=== PATIENT | female | born 1995 | race Caucasian/White ===

== ENCOUNTER 2018-08-14 16:54 | Emergency (ER) | payer SELFPAY ==
--- NOTE | 2018-08-14 17:36 | ER Document Report ---
ED Medical Screen (RME) - General Chief Complaint: Head Injury Stated Complaint: HEAD PAIN Time Seen by Provider: 08/14/18 17:26 Notes: 23 years old female female with a history of chronic seizure disorder and multiple syncopal episode could not afford seizure medication, started taking CBD oil since then seizure episodes have decreased tremendously. This morning she did not have enough CBD oil took a small dose could not take the noon no evening dose, had a syncopal episode prior to coming to the ED. Obesity no obvious trauma TRAVEL OUTSIDE OF THE [place] IN LAST 30 DAYS: No - Related Data Allergies/Adverse Reactions: hydrocodone Allergy (Verified 08/14/18 16:55) Past Medical History Neurological Medical History: Reports: Hx Seizures Past Surgical History: Reports: Hx Cholecystectomy, Hx Tonsillectomy - adnoids. - Immunizations Immunizations up to date: Yes Hx Diphtheria, Pertussis, Tetanus Vaccination: Yes Physical Exam - Vital signs Vitals: Temp Pulse Resp BP Pulse Ox 98.2 F 83 17 143/87 H 97 08/14/18 16:59 08/14/18 16:59 08/14/18 16:59 08/14/18 16:59 08/14/18 16:59 Course - Vital Signs Vital signs: Temp Pulse Resp BP Pulse Ox 98.2 F 83 17 143/87 H 97 08/14/18 16:59 08/14/18 16:59 08/14/18 16:59 08/14/18 16:59 08/14/18 16:59 Doctor's Discharge - Discharge Referrals: DON DEAN MD [Primary Care Provider] - Follow up as needed
[2018-08-14 18:09] LABS: ABSOLUTE EOSINOPHILS # (AUTO) 0.1 10^3/uL (0.0-0.6); ABSOLUTE LYMPHOCYTES (AUTO) 1.8 10^3/uL (0.5-4.7); ABSOLUTE MONOCYTES (AUTO) 0.7 10^3/uL (0.1-1.4); ABSOLUTE NEUT (AUTO) 8.2 10^3/uL (1.7-8.2); BASOPHILS % (AUTO) 0.4 % (0-2); EOSINOPHILS % (AUTO) 0.7 % (0-6); HEMATOCRIT 39.5 % (36.0-47.0); HEMOGLOBIN 13.5 g/dL (12.0-15.5); LYMPHOCYTES % (AUTO) 16.8 % (13-45); MEAN CORPUSCULAR HEMOGLOBIN 30.3 pg (27.0-33.4); MEAN CORPUSCULAR HGB CONC 34.2 g/dL (32.0-36.0); MEAN CORPUSCULAR VOLUME 89 fl (80-97); MONOCYTES % (AUTO) 6.8 % (3-13); PLATELET COUNT 264 10^3/uL (150-450); RED BLOOD COUNT 4.47 10^6/uL (3.72-5.28); RED CELL DISTRIBUTION WIDTH 13.5 % (11.5-14.0); SEGMENTED NEUTROPHILS % (AUTO) 75.3 % (42-78); TOTAL CELLS COUNTED % (AUTO) 100 %; WHITE BLOOD COUNT 10.9 10^3/uL (4.0-10.5)
[2018-08-14 18:16] LABS: APPEARANCE,URINE SLIGHTLY-CLOUDY; BILIRUBIN,URINE NEGATIVE (NEGATIVE); COLOR,URINE YELLOW; GLUCOSE, URINE NEGATIVE (NEGATIVE); KETONES,URINE NEGATIVE (NEGATIVE); LEUKOCYTE ESTERASE,URINE TRACE (NEGATIVE); NITRITE,URINE NEGATIVE (NEGATIVE); PROTEIN,URINE NEGATIVE (NEGATIVE); URINE SPECIFIC GRAVITY 1.019; UROBILINOGEN,URINE NEGATIVE mg/dL (<2.0)
[2018-08-14 18:30] LABS: ALANINE AMINOTRANSFERASE 41 U/L (9-52); ALBUMIN 4.3 g/dL (3.5-5.0); ALKALINE PHOSPHATASE 56 U/L (38-126); ANION GAP 10 (5-19); ASPARTATE AMINO TRANSFERASE 28 U/L (14-36); BILIRUBIN,DIRECT 0.3 mg/dL (0.0-0.4); BILIRUBIN,TOTAL 0.5 mg/dL (0.2-1.3); BLOOD UREA NITROGEN 14 mg/dL (7-20); CALCIUM 9.6 mg/dL (8.4-10.2); CARBON DIOXIDE 27 mmol/L (22-30); CHLORIDE 104 mmol/L (98-107); GLUCOSE 101 mg/dL (75-110); POTASSIUM 4.7 mmol/L (3.6-5.0); SODIUM 140.7 mmol/L (137-145); TOTAL PROTEIN 7.6 g/dL (6.3-8.2)
[2018-08-14] MEDS ORDERED: DIPHENHYDRAMINE HCL 50 MG/ML VIAL IV ONE (19:46)
[2018-08-14] MEDS ORDERED: PROCHLORPERAZINE EDISYLATE INJ 10 MG/2 ML VIAL IV ONE (19:46)
--- NOTE | 2018-08-14 19:48 | ER Document Report ---
ED General - General Chief Complaint: Head Injury Stated Complaint: HEAD PAIN Time Seen by Provider: 08/14/18 17:26 TRAVEL OUTSIDE OF THE [place] IN LAST 30 DAYS: No - HPI Notes: Patient is a 23-year-old female with a history of seizure disorder as well as episodes of syncope chronically who presents to the ED complaining of having another syncopal episode about 4 hours ago. Patient states that she is feeling fine beforehand and does not recall any other precipitating events or symptoms. Patient was on the ground for an unknown amount of time but believes it was a short amount of time as her significant other was somewhat nearby and saw her on the ground. She was responsive and acting and behaving normally thereafter. Patient states that this last happened about 2 weeks ago. Patient states that she has been using CBD oil for her medicine of choice which she believes has been helping with her seizures. Patient states that she also has a migraine history and states that she does have a headache status post a fall. Patient states that her left cheek was swollen from hitting the ground. Patient states that she came because of the headache and the pain after the fall rather than the actual syncope as this is not uncommon for her. No other concerns or complaints. She is eating and drinking without any difficulties. Denies any fever, neck pain, changes in vision/speech/mentation/hearing, URI, sore throat, chest pain, palpitations, syncope, cough, shortness of breath, wheeze, dyspnea, abdominal pain, nausea/vomiting/diarrhea, urinary retention, dysuria, hematuria, loss of control of bowel or bladder, numbness/tingling, saddle anesthesia, muscle paralysis/weakness, or rash. - Related Data Allergies/Adverse Reactions: hydrocodone Allergy (Verified 08/14/18 16:55) Past Medical History - Social History Smoking Status: Never Smoker Chew tobacco use (# tins/day): No Frequency of alcohol use: None Drug Abuse: None Family History: Reviewed & Not Pertinent Patient has suicidal ideation: No Patient has homicidal ideation: No Neurological Medical History: Reports: Hx Seizures Renal/ Medical History: Denies: Hx Peritoneal Dialysis Past Surgical History: Reports: Hx Cholecystectomy, Hx Tonsillectomy - adnoids. - Immunizations Immunizations up to date: Yes Hx Diphtheria, Pertussis, Tetanus Vaccination: Yes Review of Systems - Review of Systems -: Yes All other systems reviewed and negative Physical Exam - Vital signs Vitals: Temp Pulse Resp BP Pulse Ox 98.2 F 83 17 143/87 H 97 08/14/18 16:59 08/14/18 16:59 08/14/18 16:59 08/14/18 16:59 08/14/18 16:59 - Notes Notes: PHYSICAL EXAMINATION: GENERAL: Well-appearing, well-nourished and in no acute distress. A&Ox4. Answers questions appropriately. HEAD: Atraumatic, normocephalic. Non-tender. No couch sign EYES: Pupils equal round and reactive to light, extraocular movements intact, sclera anicteric, conjunctiva are normal. No raccoon eyes/entrapment. ENT: EAC clear b/l. TM's intact b/l without erythema, fluid, or perforation. Nares patent and without discharge. oropharynx clear without exudates. No tonsilar hypertrophy or erythema. Moist mucous membranes. No sinus tenderness. No hemotympanum/CSF discharge. No tongue bite. NECK: Normal range of motion, supple without lymphadenopathy. No rigidity. No midline tenderness. Spurling negative. NEXUS negative. LUNGS: Breath sounds clear to auscultation bilaterally and equal. No wheezes rales or rhonchi. HEART: Regular rate and rhythm without murmurs, rubs, gallops. ABDOMEN: Soft, nontender, nondistended abdomen. No guarding, no rebound. No masses appreciated. Normal bowel sounds present. No CVA tenderness bilaterally. Musculoskeletal: Ext's b/l: FROM to passive/active. Strength 5+/5. No deficits noted. No bony tenderness of extremities. Back: FROM to passive/active. Strength 5+/5. No vertebral point tenderness, stepoffs, or deformities. No other bony tenderness or ecchymosis. Extremities: No cyanosis, clubbing, or edema b/l. Peripheral pulses 2+. Capillary refill less than 2 seconds. NEUROLOGICAL: NIH 0. GCS 15. Cranial nerves grossly intact. Normal speech, normal gait. Normal sensory, motor exams. Reflexes 2+ b/l. SHIKHA's negative. Pronator drift negative. Heel/mars, finger/nose wnl. PSYCH: Normal mood, normal affect. SKIN: Warm, Dry, normal turgor, no rashes or lesions noted. Course - Re-evaluation Re-evalutation: 08/14/18 21:19 Patient is an afebrile, well-hydrated, 23-year-old female who presents to the ED with headache and head injury status post reported syncopal episode that was unwitnessed. Vitals are acceptable without any significant tachycardia, tachypnea, or hypoxia. PE is otherwise unremarkable for any focal neurological deficits. CT scan of the head and face were unremarkable for any acute pathology. Nexus criteria otherwise negative. CBC, CMP, urinalysis, hCG were unremarkable for any acute pathology. Orthostatics were unremarkable. EKG was acceptable. Patient was given Compazine and Benadryl which resolved her headache. Patient states that she is feeling much better and is ready to go home. She is currently asymptomatic. Patient has a repeat reported history of syncopal episodes like this episode somewhat frequently. Patient is ambulatory without any difficulty. No further labs or imaging warranted at this time. Low suspicion for any acute glaucoma, temporal arteritis, meningitis, intracranial hemorrhage, ischemic stroke, significant cardiac arrhythmia, or fracture at this time. Pt has not had any CP, GARZA, or SOB. Patient is aware that this condition can change from initial presentation and that she needs to monitor symptoms closely for any acute changes. Conservative measures for symptoms. Recheck with your PCM/neurology this week. Return to the ED with any worsening/concerning symptoms otherwise as reviewed discharge. Patient is in agreement. - Vital Signs Vital signs: Temp Pulse Resp BP Pulse Ox 98.2 F 78 17 116/68 97 08/14/18 16:59 08/14/18 21:15 08/14/18 16:59 08/14/18 21:15 08/14/18 16:59 - Laboratory Result Diagrams: 08/14/18 17:56 08/14/18 17:56 Laboratory results interpreted by me: 08/14/18 08/14/18 17:56 17:56 WBC 10.9 H Ur Leukocyte Esterase TRACE H Discharge - Discharge Clinical Impression: Headache Qualifiers: Headache type: unspecified Headache chronicity pattern: acute headache Intractability: not intractable Qualified Code(s): R51 - Headache Episode of syncope Qualifiers: Syncope type: unspecified Qualified Code(s): R55 - Syncope and collapse Contusion of face Qualifiers: Encounter type: initial encounter Qualified Code(s): S00.83XA - Contusion of other part of head, initial encounter Condition: Stable Disposition: HOME, SELF-CARE Instructions: Syncopal Episode ([facility]), Head Injury Precautions ([facility]), Headache ( [facility]) Additional Instructions: Rest, Ice Tylenol/ibuprofen as needed Light stretches daily Strength exercises as able Moist heat and massage may help F/u with your PCP/Neurologist in 2-3 days for a recheck Return to the ED with any worsening symptoms and/or development of fever, headache, changes in behavior/mentation/vision/speech, chest pain, palpitations , syncope, shortness of breath, trouble breathing, abdominal pain, n/v/d, blood in stool/urine, loss of control of bowel/bladder, urinary retention, muscle weakness/paralysis, saddle anesthesia, numbness/tingling, or other worsening symptoms that are concerning to you. Referrals: DON DEAN MD [[facility]] - Follow up as needed DARLENE MANSFIELD MD [[facility]] - Follow up as needed
--- NOTE | 2018-08-14 21:08 | RADIOLOGY REPORT (SQ) ---
EXAM DESCRIPTION: CT FACIAL AREA WITHOUT COMPLETED DATE/TIME: 08/14/2018 8:50 pm REASON FOR STUDY: syncopal episode, left face injury COMPARISON: None. TECHNIQUE: Noncontrasted images through the facial bones and orbits windowed for bone and soft tissu e. Additional coronal and sagittal reconstructed images reviewed. All images stored on PACS. All CT scanners at this facility use dose modulation, iterative reconstruction, and/or weight based d osing when appropriate to reduce radiation dose to as low as reasonably achievable (ALARA). [facility]: Dose Right [facility]: CareDose [facility]: Dose Right [facility]: Teradose 4D [facility]: [employer] RADIATION DOSE: CT Rad equipment meets quality standard of care and radiation dose reduction techniq ues were employed. CTDIvol: 30.4 mGy. DLP: 498 mGy-cm. mGy. LIMITATIONS: None. FINDINGS: FACIAL BONES: No fracture or bone lesion. ORBITS: Intact. No fracture. Symmetric intact globes and retroorbital soft tissues. PARANASAL SINUSES: Clear. No significant mucosal thickening, mass or fluid. No nasal polyps. Maxill magno sinus outlets are patent. SOFT TISSUES: No mass or edema. INFERIOR BRAIN: Limited view. No acute findings. OTHER: No other significant finding. IMPRESSION: NO ACUTE FINDINGS. TECHNICAL DOCUMENTATION: JOB ID: [id number] Quality ID # [id number]: Final reports with documentation of one or more dose reduction techniques (e.g., Au tomated exposure control, adjustment of the mA and/or kV according to patient size, use of iterative reconstruction technique) 2010 [employer]- All Rights Reserved Reading location - IP/workstation name: [email or web address]
--- NOTE | 2018-08-14 21:09 | RADIOLOGY REPORT (SQ) ---
EXAM DESCRIPTION: CT HEAD WITHOUT COMPLETED DATE/TIME: 08/14/2018 8:50 pm REASON FOR STUDY: syncopal episode, head injury COMPARISON: 06/04/2013 TECHNIQUE: Axial images acquired through the brain without intravenous contrast. Images reviewed wi th bone, brain and subdural windows. Additional sagittal and coronal reconstructions were generated. Images stored on PACS. All CT scanners at this facility use dose modulation, iterative reconstruction, and/or weight based d osing when appropriate to reduce radiation dose to as low as reasonably achievable (ALARA). [facility]: Dose Right [facility]: CareDose [facility]: Dose Right [facility]: Teradose 4D [facility]: [employer] RADIATION DOSE: CT Rad equipment meets quality standard of care and radiation dose reduction techniq ues were employed. CTDIvol: 53.2 mGy. DLP: 937 mGy-cm. mGy. LIMITATIONS: None. FINDINGS: VENTRICLES: Normal size and contour. CEREBRUM: No masses. No hemorrhage. No midline shift. No evidence for acute infarction. Normal gra y/white matter differentiation. No areas of low density in the white matter. CEREBELLUM: No masses. No hemorrhage. No alteration of density. No evidence for acute infarction. EXTRAAXIAL SPACES: No fluid collections. No masses. ORBITS AND GLOBE: No intra- or extraconal masses. Normal contour of globe without masses. CALVARIUM: No fracture. PARANASAL SINUSES: No fluid or mucosal thickening. SOFT TISSUES: No mass or hematoma. OTHER: No other significant finding. IMPRESSION: NORMAL BRAIN CT WITHOUT CONTRAST. EVIDENCE OF ACUTE STROKE: NO. COMMENT: Quality ID # [id number]: Final reports with documentation of one or more dose reduction techniques (e.g., Automated exposure control, adjustment of the mA and/or kV according to patient size, use of iterative reconstruction technique) TECHNICAL DOCUMENTATION: JOB ID: [id number] [employer]- All Rights Reserved Reading location - IP/workstation name: [email or web address]
[2018-08-14 21:39] VITALS: BP 102/54
--- NOTE | 2018-08-15 08:59 | EKG REPORT ---
SEVERITY:- BORDERLINE ECG - SINUS RHYTHM PROBABLE LEFT ATRIAL ABNORMALITY INFERIOR Q WAVES, PROBABLY NORMAL VARIATION : Confirmed by: Tangela Alan 15-Aug-2018 08:58:06
== END 2018-08-14 21:40 | disposition home or self-care (01) ==
LOC: ER 16:54
DX: S00.83XA Contusion of other part of head, initial encounter (principal); R51 Headache; W19.XXXA Unspecified fall, initial encounter; Y93.89 Activity, other specified; R55 Syncope and collapse; Z88.5 Allergy status to narcotic agent
CPT/HCPCS: 93005; 99284; 96374; 96375; 36415; 83735; 85025; 81025; 80053; 81001; 70450; 70486; 93010; J1200; J0780

== ENCOUNTER 2018-10-29 17:28 | Emergency (ER) | payer SELFPAY ==
[2018-10-29] MEDS ORDERED: LIDOCAINE 2% VISCOUS SOLN 20 ML UDCUP PO ONE (17:38)
[2018-10-29 17:41] VITALS: BP 127/88
--- NOTE | 2018-10-29 17:43 | ER Document Report ---
HPI - HPI Time Seen by Provider: 10/29/18 17:37 Pain Level: 5 Notes: Patient is a 23-year-old female who presents to the ED complaining of Rt upper/lower dental pain to the molars x2 weeks. She has not noticed any obvious abscess or purulent discharge. Patient states that she is still able to eat and drink, but does have a decreased p.o. intake due to the pain. She has tried some [id number] meds with minimal relief. No other concerns or complaints. Patient states that she cannot afford a dentist at this time. Denies any headache, fever, head injury, neck pain, hoarseness, drooling, URI, sore throat, chest pain, palpitations, syncope, cough, shortness of breath, wheeze, dyspnea, abdominal pain, nausea/vomiting/diarrhea, urinary retention, dysuria, hematuria, or rash. - ROS Systems Reviewed and Negative: Yes All other systems reviewed and negative - REPRODUCTIVE Reproductive: DENIES: : Past Medical History - Social History Smoking Status: Unknown if Ever Smoked Family History: Reviewed & Not Pertinent Neurological Medical History: Reports: Hx Seizures Renal/ Medical History: Denies: Hx Peritoneal Dialysis Past Surgical History: Reports: Hx Cholecystectomy, Hx Tonsillectomy - adnoids. - Immunizations Immunizations up to date: Yes Hx Diphtheria, Pertussis, Tetanus Vaccination: Yes Vertical Provider Document - CONSTITUTIONAL Agree With Documented VS: Yes Notes: PHYSICAL EXAMINATION: GENERAL: Well-appearing, well-nourished and in no acute distress. HEAD: Atraumatic, normocephalic. EYES: Pupils equal round and reactive to light, extraocular movements intact, sclera anicteric, conjunctiva are normal. ENT: EAC clear b/l. TM's intact b/l without erythema, fluid, or perforation. Nares patent and without discharge. oropharynx clear without exudates. No tonsilar hypertrophy or erythema. Moist mucous membranes. No sinus tenderness. Uvula midline. No palatine shift. No tongue protrusion. No respiratory compromise. Mouth: Poor dentition. + mild decay and mild gingivitis. No obvious abscess or discharge noted. No facial swelling. + tenderness to tooth #1-3,30-32. NECK: Normal range of motion, supple without lymphadenopathy. No rigidity/meningismus. LUNGS: Breath sounds clear to auscultation bilaterally and equal. No wheezes rales or rhonchi. HEART: Regular rate and rhythm without murmurs, rubs, gallops. NEUROLOGICAL: Cranial nerves grossly intact. Normal speech, normal gait. Normal sensory, motor exams PSYCH: Normal mood, normal affect. SKIN: Warm, Dry, normal turgor, no rashes or lesions noted. - INFECTION CONTROL TRAVEL OUTSIDE OF THE [place] IN LAST 30 DAYS: No Course - Re-evaluation Re-evalutation: 10/29/18 17:43 Patient is an afebrile, well-hydrated, 23-year-old female who presents to the ED with dental pain, suspect nerve root etiology versus infection. Vitals are acceptable. PE is otherwise unremarkable. No I&D, labs, or imaging warranted at this time based on H&P. Viscous lidocaine dispensed today. I will send her home with a prescription for penicillin. Low suspicion for any meningitis, sepsis, peritonsillar/pharyngeal abscess, respiratory compromise, Josh's, temporal arteritis, or other emergent systemic condition at this time. Patient is aware this condition can change from initial presentation and she needs to monitor symptoms closely. Conservative measures otherwise for symptoms. Call to schedule an appointment with a dentist for further evaluation and management. Recheck with your PCM this week as well. Return to the ED with any worsening /concerning symptoms otherwise as reviewed in discharge. Patient is in agreement. Discharge - Discharge Clinical Impression: Pain, dental Condition: Stable Disposition: HOME, SELF-CARE Instructions: Penicillin V K ([facility]), Toothache ([facility]) Additional Instructions: [place] and floss twice daily Maintain fluid intake Take antibiotics as directed Mouthwash, salt water gargles, peroxide rinse as needed Tylenol/ibuprofen as needed Recheck with PCM this week Call today/tomorrow and schedule an appointment with your dentist for further evaluation Return to the ED with any worsening symptoms and/or development of fever, headache, facial swelling, swelling of lips/tongue/throat, trouble swallowing, drooling, hoarseness, neck pain/stiffness, chest pain, palpitations, syncope, shortness of breath, trouble breathing, abdominal pain, n/v/d, numbness/tingling, or other worsening symptoms that are concerning to you. Prescriptions: Penicillin V Potassium [Penicillin Vk 250 mg Tablet] 500 mg PO BID #40 tablet Forms: Elevated Blood Pressure Referrals: [facility] [Provider Group] - Follow up in 1 week
== END 2018-10-29 17:48 | disposition home or self-care (01) ==
LOC: ER 17:28
DX: K08.89 Other specified disorders of teeth and supporting structures (principal); R63.0 Anorexia
CPT/HCPCS: 99282; J3490

== ENCOUNTER 2018-11-25 10:49 | Emergency (ER) | payer SELFPAY ==
[2018-11-25] MEDS ORDERED: LIDOCAINE 1% INJ-PF (10 MG/ML) 30 ML SDV INJ ONE (12:16)
[2018-11-25] MEDS ORDERED: BUPIVACAINE HCL 0.5 % INJ/PF 30 ML SDV INJ ONE (12:16)
[2018-11-25] MEDS ORDERED: PENICILLIN V POTASSIUM 500 MG TABLET PO ONE (12:17)
--- NOTE | 2018-11-25 12:22 | ER Document Report ---
ED Oral Problem - General Chief Complaint: Toothache Stated Complaint: TEETH PAIN Time Seen by Provider: 11/25/18 11:54 Mode of Arrival: Ambulatory Information source: Patient Notes: 23-year-old female presented to ED for dental pain times a week. She states it was the right bottom wisdom tooth. She states is possible infection in her tooth with no improvement. She states she is scheduled a dental appointment for on Sunday. She states she has been taken Motrin with no relief. She also complains of a headache. Patient is alert and oriented respirations regular and unlabored speaking in full sentences walks with a even steady gait. TRAVEL OUTSIDE OF THE [place] IN LAST 30 DAYS: No - HPI Patient complains to provider of: Toothache Onset: Last week Onset: Gradual Quality of pain: Sharp, Throbbing Severity: Severe Pain Level: 5 Associated symptoms: Toothache Worsened by: Cold Relieved by: Nothing Similar symptoms previously: Yes - Related Data Allergies/Adverse Reactions: hydrocodone Allergy (Verified 08/14/18 16:55) Past Medical History - General Information source: Patient - Social History Smoking Status: Never Smoker Cigarette use (# per day): No Chew tobacco use (# tins/day): No Smoking Education Provided: No Frequency of alcohol use: None Drug Abuse: None Occupation: [employer] Lives with: Parents Family History: Reviewed & Not Pertinent Patient has suicidal ideation: No Patient has homicidal ideation: No - Medical History Medical History: Other - Patient states she has a pituitary tumor - Past Medical History Cardiac Medical History: Reports: Hx Hypertension Pulmonary Medical History: Reports: None EENT Medical History: Reports: None Neurological Medical History: Reports: Hx Seizures Endocrine Medical History: Reports: Hx Hypothyroidism Renal/ Medical History: Reports: None Malignancy Medical History: Reports: None GI Medical History: Reports: None Musculoskeletal Medical History: Reports None Skin Medical History: Reports None Psychiatric Medical History: Reports: None Traumatic Medical History: Reports: None Infectious Medical History: Reports: None Past Surgical History: Reports: Hx Cholecystectomy, Hx Tonsillectomy - adnoids. - Immunizations Immunizations up to date: Yes Hx Diphtheria, Pertussis, Tetanus Vaccination: Yes Review of Systems - Review of Systems Constitutional: No symptoms reported EENT: Dental problem Cardiovascular: No symptoms reported Respiratory: No symptoms reported Gastrointestinal: No symptoms reported Genitourinary: No symptoms reported Female Genitourinary: No symptoms reported Musculoskeletal: No symptoms reported Skin: No symptoms reported Hematologic/Lymphatic: No symptoms reported Neurological/Psychological: No symptoms reported -: Yes All other systems reviewed and negative Physical Exam - Vital signs Vitals: Temp Pulse Resp BP Pulse Ox 98.9 F 66 16 145/97 H 98 11/25/18 11:00 11/25/18 11:00 11/25/18 11:00 11/25/18 11:00 11/25/18 11:00 Interpretation: Normal - General General appearance: Appears well, Alert - HEENT Head: Normocephalic, Atraumatic Eyes: Normal Pupils: PERRL Ears: Normal External canal: Normal Tympanic membrane: Normal Sinus: Normal Nasal: Normal Mouth/Lips: Caries Teeth diagram: 1 - Cavity noted with mild redness surrounding the tooth - Respiratory Respiratory status: No respiratory distress Chest status: Nontender Breath sounds: Normal Chest palpation: Normal - Cardiovascular Rhythm: Regular Heart sounds: Normal auscultation Murmur: No - Abdominal Inspection: Normal Distension: No distension Bowel sounds: Normal Tenderness: Nontender Organomegaly: No organomegaly - Back Back: Normal, Nontender - Extremities General upper extremity: Normal inspection, Nontender, Normal color, Normal ROM, Normal temperature General lower extremity: Normal inspection, Nontender, Normal color, Normal ROM, Normal temperature, Normal weight bearing. No: Mila's sign - Neurological Neuro grossly intact: Yes Cognition: Normal Orientation: AAOx4 Lawson Coma Scale Eye Opening: Spontaneous Santiago Coma Scale Verbal: Oriented Santiago Coma Scale Motor: Obeys Commands Santiago Coma Scale Total: 15 Speech: Normal Motor strength normal: LUE, RUE, LLE, RLE Sensory: Normal - Psychological Associated symptoms: Normal affect, Normal mood - Skin Skin Temperature: Warm Skin Moisture: Dry Skin Color: Normal Course - Re-evaluation Re-evalutation: 11/25/18 22:15 Presentation is most consistent with likely an infected tooth. Airway is patent. Vitals within normal limits. Patient is able swallow without any difficulty. There is no significant facial swelling. No evidence of Josh angina, apical abscess, or airway obstruction. Patient will be started on antibiotics. I've instructed to follow-up with dentistry as earliest ability for definitive management. At this time will discharge with return precautions and follow-up recommendations. Verbal discharge instructions given a the bedside and opportunity for questions given. Medication warnings reviewed. Chio tereza is in agreement with this plan and has verbalized understanding of return precautions and the need for primary care follow-up in the next 24-72 hours. - Vital Signs Vital signs: Temp Pulse Resp BP Pulse Ox 98.6 F 62 16 140/86 H 98 11/25/18 12:55 11/25/18 12:55 11/25/18 12:55 11/25/18 12:55 11/25/18 12:55 Discharge - Discharge Clinical Impression: Pain due to dental caries Condition: Stable Disposition: HOME, SELF-CARE Additional Instructions: TOOTHACHE: Your pain is due to dental decay. The tooth must be repaired in order for you to feel better. You will, therefore, be referred to a dentist. We do not have dentists on the staff at [facility]. Severe swelling or drainage around a tooth usually means a dental abscess. This also requires evaluation and treatment by the dentist, but antibiotics may be prescribed while awaiting dental treatment. You should be rechecked immediately if you develop major swelling of the face, increasing pain, a lump in the jaw or gums, headache, difficulty swallowing, or fever. PENICILLIN V K: You have been given a prescription for Penicillin VK. Your physician has determined that this is the best antibiotic for your condition. Pen VK can be taken with meals, however more of the antibiotic gets into the bloodstream if it's taken on an empty stomach. Penicillin usually has no side effects. However, allergy to penicillins is common. If you have had an allergic reaction to any drug of the penicillin family, you should never take any other penicillin. Notify your doctor at once if you develop hives, itching, swelling, faintness, or shortness of breath. You were given a dental block today with Sensorcaine and lidocaine. You state you have had a dental block in the past for a dental pain. This should last 6-8 hours. I have also put you on the penicillin. Please be sure that you get this tooth treated definitively by a dentist or oral surgeon in the near future. FOLLOW-UP CARE: You have been referred for follow-up care to the dentists listed below. Call the dentists office for an appointment as you were instructed or within the next two days. If you experience worsening or a significant change in your symptoms, notify the physician immediately or return to the Emergency Department at any time for re-evaluation. [facility] [address] [place], [place] [facility] [address] [place] [address] [facility] [address] [facility] [address] [facility] [address] [email or web address] [address] [place] [address] Sunday- 8:00am to 5:00 pm Will see patients from other [facility]. Charges based on income and family size and accepts Medicare, Medicaid, and Insurances Will pull molars [facility] [employer] [facility] [address] Hours of Operation 8:00 am - 4:30 pm weekdays The following dental offices accept Medicaid: [facility] Dr. Luis Dr. Oseguera Dr. Butts Dr. Romero Omer Chong [place], and [place] [facility] Dr. Tadeo ([place]) Dr. Worthy ([place] Mish[place]) [facility] Drs. Ocasio and Sekou ([place]) Dr. Ha ([place]) [facility] Dr. Oliver ([place]) Drs. Zurita and ([place]) Medicaid Care Line Prescriptions: Penicillin V Potassium [Penicillin Vk 500 mg Tablet] 500 mg PO BID #20 tablet Forms: Elevated Blood Pressure
[2018-11-25 13:02] VITALS: BP 140/86
== END 2018-11-25 12:55 | disposition home or self-care (01) ==
LOC: ER 10:49
DX: K08.89 Other specified disorders of teeth and supporting structures (principal); K02.9 Dental caries, unspecified; R51 Headache; I10 Essential (primary) hypertension
CPT/HCPCS: 99282; J3490 ×2

== ENCOUNTER 2018-11-26 22:27 | Emergency (ER) | payer SELFPAY ==
[2018-11-26] MEDS ORDERED: PROMETHAZINE HCL 25 MG TABLET PO ONE (23:46)
[2018-11-26] MEDS ORDERED: SUCRALFATE 1 GM TABLET PO ONE (23:46)
[2018-11-26] MEDS ORDERED: FAMOTIDINE 20 MG TABLET PO ONE (23:46)
--- NOTE | 2018-11-27 00:01 | ER Document Report ---
ED General - General Chief Complaint: Abdominal Pain Stated Complaint: SHORTNESS OF BREATH Time Seen by Provider: 11/26/18 23:27 Notes: Patient is a 23-year-old female that comes to the emergency department for chief complaint of a pain in her upper abdomen that radiates into her upper chest, she states she is very nauseated. Symptoms started earlier today. She was seen yesterday, placed on amoxicillin for dental infection, states she has been taking ibuprofen for pain, denies a daily medications otherwise. She has a Mirena in place. She denies any surgeries or medical history otherwise. She denies smoking, alcohol, or recreational drugs. Father at bedside. TRAVEL OUTSIDE OF THE [place] IN LAST 30 DAYS: No - Related Data Allergies/Adverse Reactions: hydrocodone Allergy (Verified 08/14/18 16:55) Past Medical History - General Information source: Patient - Social History Smoking Status: Never Smoker Chew tobacco use (# tins/day): No Frequency of alcohol use: None Drug Abuse: None Lives with: Family Family History: Reviewed & Not Pertinent Patient has suicidal ideation: No Patient has homicidal ideation: No - Past Medical History Cardiac Medical History: Reports: Hx Hypertension Neurological Medical History: Reports: Hx Seizures Endocrine Medical History: Reports: Hx Hypothyroidism Renal/ Medical History: Denies: Hx Peritoneal Dialysis Past Surgical History: Reports: Hx Cholecystectomy, Hx Tonsillectomy - adnoids. - Immunizations Immunizations up to date: Yes Hx Diphtheria, Pertussis, Tetanus Vaccination: Yes Review of Systems - Review of Systems Constitutional: No symptoms reported EENT: See HPI Cardiovascular: No symptoms reported Respiratory: No symptoms reported Gastrointestinal: See HPI Genitourinary: No symptoms reported Female Genitourinary: No symptoms reported Musculoskeletal: No symptoms reported Skin: No symptoms reported Hematologic/Lymphatic: No symptoms reported Neurological/Psychological: No symptoms reported Physical Exam - Vital signs Vitals: Temp Pulse Resp BP Pulse Ox 98.6 F 95 20 141/99 H 98 11/26/18 22:35 11/26/18 22:35 11/26/18 22:35 11/26/18 22:35 11/26/18 22:35 - Notes Notes: GENERAL: Alert, interacts well. No acute distress. HEAD: Normocephalic, atraumatic. EYES: Pupils equal, round, and reactive to light. Extraocular movements intact. ENT: Oral mucosa moist, tongue midline. Oropharynx unremarkable. Airway patent. Nares patent, no nasal septal hematoma, TM's intact. There is erythema and tenderness over the right lower gumline without evidence of abscess, there is no facial swelling. NECK: Full range of motion. Supple. Trachea midline. LUNGS: Clear to auscultation bilaterally, no wheezes, rales, or rhonchi. No respiratory distress. HEART: Regular rate and rhythm. No murmur ABDOMEN: Epigastric and left upper quadrant tenderness. Right upper quadrant unremarkable, lower abdomen unremarkable. No rigidity or distention. Bowel sounds present. GENITOURINARY: Deferred EXTREMITIES: Moves all 4 extremities spontaneously. No edema, normal radial and dorsalis pedis pulses bilaterally. No cyanosis. BACK: no cervical, thoracic, lumbar midline tenderness. No saddle anesthesia, normal distal neurovascular exam. NEUROLOGICAL: Alert and oriented x3. Normal speech. [cranial nerves II through XII grossly intact]. PSYCH: Normal affect, normal mood. SKIN: Warm, dry, normal turgor. No rashes or lesions noted. Course - Re-evaluation Re-evalutation: Patient with epigastric tenderness and left upper quadrant tenderness with occasional radiation to the chest. She reports nausea. She has been taking a lot of ibuprofen because of her toothache. Chest x-ray unremarkable, EKG with no acute findings, CBC, chemistry, lipase unremarkable. HCG is negative. Clinical presentation is most consistent with upper abdominal inflammation, she was given Carafate, Pepcid, Phenergan. On reevaluation patient is much improved. She tolerates p.o. without any difficulty. I discussed workup, recommendations, treatment. Discussed follow- up and return precautions. Patient states satisfaction and agreement with plan. Stable at time of discharge. - Vital Signs Vital signs: Temp Pulse Resp BP Pulse Ox 98.6 F 74 18 114/60 97 11/27/18 01:22 11/27/18 01:22 11/27/18 01:22 11/27/18 01:22 11/27/18 01:22 - Laboratory Result Diagrams: 11/27/18 00:01 11/27/18 00:01 Laboratory results interpreted by me: 11/27/18 00:01 WBC 12.2 H Seg Neutrophils % 78.2 H Absolute Neutrophils 9.6 H Discharge - Discharge Clinical Impression: Epigastric pain, Nausea Chest pain Qualifiers: Chest pain type: unspecified Qualified Code(s): R07.9 - Chest pain, unspecified Condition: Stable Disposition: HOME, SELF-CARE Additional Instructions: Your symptoms and examination indicate gastritis/esophagitis (inflammation of your upper gastrointestinal tract). Take Phenergan for nausea, take Carafate and Pepcid as prescribed to help treat this, you can take additional Rolaids, Tums, Maalox, etc. if needed. You can take Tylenol for pain. Avoid NSAIDs, alcohol, smoking, caffeine, spicy food. Start with clear fluids, progress to bland diet. Follow-up with primary care for additional evaluation and treatment including possible H. pylori testing. Return if you worsen including uncontrolled vomiting, vomiting blood, black stools, severe pain, fever for 100.4 or greater, or any other concerning or worsening symptoms. Prescriptions: Famotidine [Pepcid 20 mg Tablet] 20 mg PO BID #20 tablet Promethazine HCl [Phenergan 25 mg Tablet] 25 mg PO Q6H PRN #20 tablet PRN Reason: Sucralfate [Carafate 1 gm Tablet] 1 gm PO QID #20 tablet
--- NOTE | 2018-11-27 00:24 | RADIOLOGY REPORT (SQ) ---
EXAM DESCRIPTION: XR CHEST 1 VIEW COMPLETED DATE/TME: 11/26/2018 23:46 CLINICAL HISTORY: 23 years, Female, chest pain COMPARISON: None. NUMBER OF VIEWS: TECHNIQUE: LIMITATIONS: None. FINDINGS: No evidence of pulmonary infiltrate or pleural effusion. The heart and mediastinum are unremarkable. Pulmonary vascularity appears normal. IMPRESSION: No acute finding. copyright 2010 [employer]- All Rights Reserved
[2018-11-27 00:25] LABS: ABSOLUTE LYMPHOCYTES (AUTO) 1.8 10^3/uL (0.5-4.7); ABSOLUTE MONOCYTES (AUTO) 0.8 10^3/uL (0.1-1.4); ABSOLUTE NEUT (AUTO) 9.6 10^3/uL (1.7-8.2); BASOPHILS % (AUTO) 0.3 % (0-2); EOSINOPHILS % (AUTO) 0.3 % (0-6); HEMATOCRIT 38.1 % (36.0-47.0); LYMPHOCYTES % (AUTO) 14.8 % (13-45); MEAN CORPUSCULAR HEMOGLOBIN 29.8 pg (27.0-33.4); MEAN CORPUSCULAR HGB CONC 34.1 g/dL (32.0-36.0); MEAN CORPUSCULAR VOLUME 88 fl (80-97); MONOCYTES % (AUTO) 6.4 % (3-13); PLATELET COUNT 233 10^3/uL (150-450); RED BLOOD COUNT 4.35 10^6/uL (3.72-5.28); RED CELL DISTRIBUTION WIDTH 13.2 % (11.5-14.0); SEGMENTED NEUTROPHILS % (AUTO) 78.2 % (42-78); TOTAL CELLS COUNTED % (AUTO) 100 %; WHITE BLOOD COUNT 12.2 10^3/uL (4.0-10.5)
[2018-11-27 00:52] LABS: ALANINE AMINOTRANSFERASE 30 U/L (9-52); ALBUMIN 4.2 g/dL (3.5-5.0); ALKALINE PHOSPHATASE 68 U/L (38-126); ANION GAP 9 (5-19); ASPARTATE AMINO TRANSFERASE 23 U/L (14-36); BILIRUBIN,DIRECT 0.3 mg/dL (0.0-0.4); BILIRUBIN,TOTAL 0.6 mg/dL (0.2-1.3); BLOOD UREA NITROGEN 9 mg/dL (7-20); CALCIUM 9.4 mg/dL (8.4-10.2); CARBON DIOXIDE 24 mmol/L (22-30); CHLORIDE 104 mmol/L (98-107); GLUCOSE 107 mg/dL (75-110); LIPASE 31.2 U/L (23-300); POTASSIUM 3.9 mmol/L (3.6-5.0); SODIUM 137.1 mmol/L (137-145); TOTAL PROTEIN 7.1 g/dL (6.3-8.2)
[2018-11-27 01:22] VITALS: BP 114/60
--- NOTE | 2018-11-27 09:34 | EKG REPORT ---
SEVERITY:- BORDERLINE ECG - SINUS RHYTHM PROBABLE LEFT ATRIAL ABNORMALITY : Confirmed by: Tangela Alan 27-Nov-2018 09:34:20
== END 2018-11-27 01:22 | disposition home or self-care (01) ==
LOC: ER 22:27
DX: R10.13 Epigastric pain (principal); R11.0 Nausea; R07.9 Chest pain, unspecified; R10.10 Upper abdominal pain, unspecified; R06.02 Shortness of breath; I10 Essential (primary) hypertension; E03.9 Hypothyroidism, unspecified; Z90.49 Acquired absence of other specified parts of digestive tract
CPT/HCPCS: 36415; 71045; 80053; 83690; 84703; 85025; 93005; 93010; 99284

== ENCOUNTER 2018-12-31 16:20 | Emergency (ER) | payer SELFPAY ==
[2018-12-31] MEDS ORDERED: ONDANSETRON HCL INJ/PF 4 MG/2 ML SDV IV ONE (16:43)
--- NOTE | 2018-12-31 17:11 | ER Document Report ---
ED Medical Screen (RME) - General Chief Complaint: Nausea/Vomiting Stated Complaint: VOMITING Time Seen by Provider: 12/31/18 17:06 TRAVEL OUTSIDE OF THE [place] IN LAST 30 DAYS: No - HPI Notes: 12/31/18 17:10 Patient is a 23-year-old female with a history of gastritis, cholecystectomy, and epilepsy who presents to the emergency department complaining of recurring epigastric abdominal pain with associated nausea, vomiting, and diarrhea that began last evening after she reintroducing herself to more foods. She is otherwise urinating normally and having normal bowel movements. The pain does not radiate. Denies any headache, fever, neck pain, URI, sore throat, chest pain, palpitations, syncope, cough, shortness of breath, wheeze, dyspnea, urinary retention, dysuria, hematuria, back pain, or rash. I have treated and performed a rapid initial assessment of this patient. A comprehensive ED assessment and evaluation of the patient, analysis of test results and completion of medical decision making process will be conducted by additional ED providers. PHYSICAL EXAMINATION: GENERAL: Well-appearing, well-nourished and in no acute distress. A&Ox4. Answers questions appropriately. LUNGS: Breath sounds clear to auscultation bilaterally and equal. No wheezes rales or rhonchi. HEART: Regular rate and rhythm without murmurs, rubs, gallops. ABDOMEN: Soft, nondistended abdomen. No guarding, no rebound. Normal bowel sounds present. No CVA tenderness bilaterally. + mild epigastric tenderness (cannot elicit thorough abd exam w/o table, however). Extremities: No cyanosis, clubbing, or edema b/l. NEUROLOGICAL: Normal speech, normal gait. PSYCH: Normal mood, normal affect. - Related Data Allergies/Adverse Reactions: hydrocodone Allergy (Verified 12/31/18 16:21) Past Medical History - Past Medical History Cardiac Medical History: Reports: Hx Hypertension Neurological Medical History: Reports: Hx Seizures Endocrine Medical History: Reports: Hx Hypothyroidism Renal/ Medical History: Denies: Hx Peritoneal Dialysis Past Surgical History: Reports: Hx Cholecystectomy, Hx Tonsillectomy - adnoids. - Immunizations Immunizations up to date: Yes Hx Diphtheria, Pertussis, Tetanus Vaccination: Yes Physical Exam - Vital signs Vitals: Temp Pulse Resp BP Pulse Ox 98.7 F 82 15 143/84 H 100 12/31/18 16:40 12/31/18 16:40 12/31/18 16:40 12/31/18 16:40 12/31/18 16:40 Course - Vital Signs Vital signs: Temp Pulse Resp BP Pulse Ox 98.7 F 82 15 143/84 H 100 12/31/18 16:40 12/31/18 16:40 12/31/18 16:40 12/31/18 16:40 12/31/18 16:40
[2018-12-31] MEDS: NORMAL SALINE 1000 ML 1,000 ML IV PRN ×2 (17:58→20:01)
[2018-12-31 18:01] LABS: APPEARANCE,URINE CLEAR; BILIRUBIN,URINE NEGATIVE (NEGATIVE); COLOR,URINE STRAW; GLUCOSE, URINE NEGATIVE (NEGATIVE); KETONES,URINE NEGATIVE (NEGATIVE); LEUKOCYTE ESTERASE,URINE NEGATIVE (NEGATIVE); NITRITE,URINE NEGATIVE (NEGATIVE); PROTEIN,URINE NEGATIVE (NEGATIVE); UROBILINOGEN,URINE NEGATIVE mg/dL (<2.0)
[2018-12-31] MEDS ORDERED: SUCRALFATE 1 GM TABLET PO ONE (19:30)
[2018-12-31] MEDS ORDERED: PANTOPRAZOLE SODIUM 40 MG VIAL IV ONE (19:30)
--- NOTE | 2018-12-31 19:31 | ER Document Report ---
ED General - General Chief Complaint: Nausea/Vomiting Stated Complaint: VOMITING Time Seen by Provider: 12/31/18 17:06 Mode of Arrival: Ambulatory Information source: Patient Notes: This is a 23-year-old female with a history of gastritis who presents to the emergency room with nausea, vomiting, diarrhea and epigastric discomfort. Patient does have a history of cholecystectomy. She denies any fever, chills. TRAVEL OUTSIDE OF THE [place] IN LAST 30 DAYS: No - HPI Onset: Yesterday Onset/Duration: Gradual Quality of pain: Achy, Dull Severity: Moderate Pain Level: 2 Associated symptoms: denies: Chest pain, Fever, Shortness of breath Exacerbated by: Denies Relieved by: Denies Similar symptoms previously: Yes Recently seen / treated by doctor: No - Related Data Allergies/Adverse Reactions: hydrocodone Allergy (Verified 12/31/18 16:21) Past Medical History - General Information source: Patient - Social History Smoking Status: Never Smoker Cigarette use (# per day): No Chew tobacco use (# tins/day): No Frequency of alcohol use: None Drug Abuse: None Lives with: Family Family History: Reviewed & Not Pertinent Patient has suicidal ideation: No Patient has homicidal ideation: No - Past Medical History Cardiac Medical History: Reports: Hx Hypertension Neurological Medical History: Reports: Hx Seizures Endocrine Medical History: Reports: Hx Hypothyroidism Renal/ Medical History: Denies: Hx Peritoneal Dialysis Past Surgical History: Reports: Hx Cholecystectomy, Hx Orthopedic Surgery - Bicep repair, Hx Tonsillectomy - adnoids. - Immunizations Immunizations up to date: Yes Hx Diphtheria, Pertussis, Tetanus Vaccination: Yes Review of Systems - Review of Systems Constitutional: denies: Chills, Fever EENT: No symptoms reported Cardiovascular: denies: Chest pain, Palpitations, Heart racing Respiratory: No symptoms reported Gastrointestinal: Abdominal pain, Nausea, Vomiting Genitourinary: No symptoms reported Female Genitourinary: No symptoms reported Musculoskeletal: No symptoms reported Skin: No symptoms reported Hematologic/Lymphatic: No symptoms reported Neurological/Psychological: No symptoms reported Physical Exam - Vital signs Vitals: Temp Pulse Resp BP Pulse Ox 98.7 F 82 15 143/84 H 100 12/31/18 16:40 12/31/18 16:40 12/31/18 16:40 12/31/18 16:40 12/31/18 16:40 Notes: Physical exam: GENERAL: She is alert and oriented x3, no acute distress HEAD: Atraumatic, normocephalic. EYES: Pupils equal round and reactive to light, extraocular movements intact, sclera anicteric, conjunctiva are normal. ENT: TMs normal, nares patent, oropharynx clear without exudates. Moist mucous membranes. NECK: Normal range of motion, supple without obvious mass or JVD. LUNGS: Breath sounds clear to auscultation bilaterally and equal. No wheezes rales or rhonchi. HEART: Regular rate and rhythm without murmurs, rubs or gallops. ABDOMEN: Soft, normoactive bowel sounds. No tenderness to palpation. No guarding, no rebound. No masses appreciated. EXTREMITIES: Normal range of motion, no pitting or edema. No clubbing or cyanosis. NEUROLOGICAL: Cranial nerves II through XII grossly intact. Normal speech, moving all extremities. PSYCH: Normal mood, normal affect. SKIN: Warm, Dry, normal turgor, no rashes or lesions noted. Course - Vital Signs Vital signs: Temp Pulse Resp BP Pulse Ox 98.2 F 71 18 97/62 L 100 12/31/18 20:13 12/31/18 20:13 12/31/18 20:13 12/31/18 20:13 12/31/18 20:13 - Laboratory Result Diagrams: 12/31/18 20:44 12/31/18 20:44 Laboratory results interpreted by me: 12/31/18 12/31/18 12/31/18 17:41 20:44 20:44 WBC 12.9 H Absolute Neutrophils 9.4 H Chloride 108 H Urine Blood SMALL H Discharge - Discharge Clinical Impression: Gastritis Condition: Stable Disposition: HOME, SELF-CARE Instructions: Gastritis ([facility]) Additional Instructions: As we discussed, your labs look good today. I do want you to follow[facility]up with [facility] which [facility] a free clinic affiliated with the [facility]. I also gave you the number of Dr. Antoine who is the GI doctor affiliated with the [facility]. The medicines as prescribed. Return to the ER for worsening pain or concerns or getting worse. Prescriptions: Famotidine [Pepcid 20 mg Tablet] 20 mg PO DAILY #30 tablet Promethazine HCl [Phenergan 25 mg Tablet] 25 mg PO Q6H PRN #15 tablet PRN Reason: Sucralfate [Carafate 1 gm Tablet] 1 gm PO QID #20 tablet Referrals: ROMMEL ANTOINE MD [ACTIVE STAFF] - Follow up as needed (This is the number the GI doctor affiliated with the hospital.) [facility] [Provider Group] - Follow up as needed (thIs the number the free clinic affiliated with the [facility].)
[2018-12-31 20:59] LABS: ABSOLUTE BASOPHILS # (AUTO) 0.1 10^3/uL (0.0-0.2); ABSOLUTE LYMPHOCYTES (AUTO) 2.8 10^3/uL (0.5-4.7); ABSOLUTE MONOCYTES (AUTO) 0.7 10^3/uL (0.1-1.4); ABSOLUTE NEUT (AUTO) 9.4 10^3/uL (1.7-8.2); BASOPHILS % (AUTO) 0.4 % (0-2); EOSINOPHILS % (AUTO) 0.3 % (0-6); HEMATOCRIT 41.1 % (36.0-47.0); HEMOGLOBIN 13.9 g/dL (12.0-15.5); LYMPHOCYTES % (AUTO) 21.4 % (13-45); MEAN CORPUSCULAR HEMOGLOBIN 29.8 pg (27.0-33.4); MEAN CORPUSCULAR HGB CONC 33.8 g/dL (32.0-36.0); MEAN CORPUSCULAR VOLUME 88 fl (80-97); MONOCYTES % (AUTO) 5.2 % (3-13); PLATELET COUNT 269 10^3/uL (150-450); RED BLOOD COUNT 4.65 10^6/uL (3.72-5.28); RED CELL DISTRIBUTION WIDTH 13.7 % (11.5-14.0); SEGMENTED NEUTROPHILS % (AUTO) 72.7 % (42-78); TOTAL CELLS COUNTED % (AUTO) 100 %; WHITE BLOOD COUNT 12.9 10^3/uL (4.0-10.5)
[2018-12-31 21:10] LABS: ALANINE AMINOTRANSFERASE 39 U/L (9-52); ALBUMIN 4.3 g/dL (3.5-5.0); ALKALINE PHOSPHATASE 67 U/L (38-126); ANION GAP 8 (5-19); ASPARTATE AMINO TRANSFERASE 26 U/L (14-36); BILIRUBIN,DIRECT 0.3 mg/dL (0.0-0.4); BILIRUBIN,TOTAL 0.5 mg/dL (0.2-1.3); BLOOD UREA NITROGEN 9 mg/dL (7-20); CALCIUM 9.3 mg/dL (8.4-10.2); CARBON DIOXIDE 24 mmol/L (22-30); CHLORIDE 108 mmol/L (98-107); GLUCOSE 89 mg/dL (75-110); POTASSIUM 4.1 mmol/L (3.6-5.0); SODIUM 139.6 mmol/L (137-145); TOTAL PROTEIN 7.6 g/dL (6.3-8.2)
[2019-01-01 00:10] VITALS: BP 119/56
== END 2018-12-31 23:20 | disposition home or self-care (01) ==
LOC: ER 16:20
DX: K29.70 Gastritis, unspecified, without bleeding (principal); R11.2 Nausea with vomiting, unspecified; R19.7 Diarrhea, unspecified; R10.13 Epigastric pain; I10 Essential (primary) hypertension
CPT/HCPCS: 99284; 96361; 96374; 96375; 36415; 87086; 83690; 85025; 81025; 80053; 81001; S0164; J2405; J7030

== ENCOUNTER 2019-04-18 06:42 | Emergency (ER) | payer SELFPAY ==
[2019-04-18 06:48] VITALS: BP 142/88
[2019-04-18] MEDS ORDERED: POLYMYXIN B SULFATE/TMP OPH SOLN (10 ML/ER DISP) AS SCH (10:00)
--- NOTE | 2019-04-18 14:48 | ER Document Report ---
Entered by DANI HOLLOWAY SCRIBE 04/18/19 0827 Acting as scribe for:OLIVE CANNON DO ED General - General Chief Complaint: Ear Pain Stated Complaint: EAR PAIN Time Seen by Provider: 04/18/19 08:11 Primary Care Provider: JO-ANN VALDIVIA DO [ASSOCIATE] - Follow up in 3-5 days (Follow-up if no significant relief within 2 days) Cannot obtain history due to: Uncooperative Notes: Patient is a 24-year-old female presenting to the emergency department complaining of left earache/ear pain. Patient states that she is also having discharge come out of her ear. Patient states that this been constant for 3 days now, it happened before but she took medicine and it went away. Patient states that the side of her face has been swelling, painful, radiates down to her jaw. Patient states that she has also been experiencing dry mouth, nausea, lightheadedness. Patient states that her lightheadedness is exacerbated by walking around. Patient states that she has epilepsy, she currently takes CBD for it. Patient states that her last episode was about 5 months ago. TRAVEL OUTSIDE OF THE [place] IN LAST 30 DAYS: No - Related Data Allergies/Adverse Reactions: hydrocodone Allergy (Verified 12/31/18 16:21) Past Medical History - General Information source: Patient - Social History Smoking Status: Never Smoker Cigarette use (# per day): No Chew tobacco use (# tins/day): No Frequency of alcohol use: None Drug Abuse: None Family History: Reviewed & Not Pertinent - Past Medical History Cardiac Medical History: Reports: Hx Hypertension Neurological Medical History: Reports: Hx Seizures Endocrine Medical History: Reports: Hx Hypothyroidism Past Surgical History: Reports: Hx Cholecystectomy, Hx Orthopedic Surgery - Bicep repair, Hx Tonsillectomy - adnoids. - Immunizations Immunizations up to date: Yes Hx Diphtheria, Pertussis, Tetanus Vaccination: Yes Review of Systems - Review of Systems Constitutional: No symptoms reported EENT: See HPI, Ear pain, Ear discharge, Mouth swelling - Left-sided. Radiates to jaw. Cardiovascular: See HPI, Lightheaded Respiratory: No symptoms reported Gastrointestinal: See HPI, Nausea Genitourinary: No symptoms reported Female Genitourinary: No symptoms reported Musculoskeletal: No symptoms reported Skin: No symptoms reported Hematologic/Lymphatic: No symptoms reported Neurological/Psychological: No symptoms reported Physical Exam - Vital signs Vitals: Temp Pulse Resp BP Pulse Ox 98.5 F 81 16 142/88 H 97 04/18/19 06:47 04/18/19 06:47 04/18/19 06:47 04/18/19 06:47 04/18/19 06:47 Interpretation: Hypertensive - Notes Notes: PHYSICAL EXAM GENERAL: Alert, interacts well. No acute distress. HEAD: Normocephalic, atraumatic. No facial droop present. EYES: Pupils equal, round, and reactive to light. Extraocular movements intact. ENT: Crusty yellow drainage present in left external auditory canal. Erythema present in the left auditory canal. Left EAC swollen unable to see TM. Right ear normal, right TM intact. Oral mucosa moist, tongue midline. Clear rhinorrh ea from left nostril with some turbinate edema. No tenderness over the mastoid. Able to fully open and close mouth. NECK: Full range of motion. Supple. Trachea midline. Minimal tenderness under the angle of the jaw on the left. LUNGS: Clear to auscultation bilaterally, no wheezes, rales, or rhonchi. No respiratory distress. HEART: Regular rate and rhythm. No murmurs, gallops, or rubs. ABDOMEN: Soft, non-tender. Non-distended. Bowel sounds present in all 4 quadrants. No guarding, rigidity, or rebound. EXTREMITIES: Moves all 4 extremities spontaneously. No edema, No cyanosis. NEUROLOGICAL: Alert and oriented x3. Normal speech. PSYCH: Normal affect, normal mood. SKIN: Warm, dry, normal turgor. No rashes or lesions noted. Course - Re-evaluation Re-evalutation: 04/18/19 08:42 Exam consistent with otitis externa, no signs of malignant otitis externa, will treat with Polytrim eyedrops applied to the ear. Ear wick will be inserted. Discharged home. 04/18/19 09:[address] Valdivia for follow-up as well. - Vital Signs Vital signs: Temp Pulse Resp BP Pulse Ox 98.5 F 81 16 142/88 H 97 04/18/19 06:47 04/18/19 06:47 04/18/19 06:47 04/18/19 06:47 04/18/19 06:47 Discharge - Discharge Clinical Impression: Otitis externa, left Qualifiers: Otitis externa type: diffuse Chronicity: acute Qualified Code(s): H60.312 - Diffuse otitis externa, left ear Condition: Stable Disposition: HOME, SELF-CARE Additional Instructions: Otitis Externa You have otitis externa -- an infection of the outer ear canal. This can be very painful. It's sometimes called "swimmer's ear," because it often occurs after prolonged water exposure. Many things, such as earwax and dirt in the ear, can contribute to it. The usual treatment is antibiotic/antiinflammatory ear drops. Occasionally, a wick will be placed in the ear to draw in the medicine. If the infection is severe, an oral antibiotic may be prescribed. Pain medication is often needed. Avoid getting water in the ear. Outer ear infections often take longer to heal than you might expect. Some tenderness and ache in the ear may persist for about two weeks. See your physician if you fail to improve as expected. Call the doctor at once if you develop fever, increasing swelling (particularly if it makes your ear "poke out"), severe headache, stiff neck, or decreased hearing. Using Ear Drops with a Wick A wick has been placed in your ear. This keeps the medicine in constant contact with the ear canal. You'll need to put fresh medicine into the wick. Follow these instructions. If you encounter problems of any kind, notify the physician. (1) Lay your head sideways on a pillow. (2) Place the dropper tip so it's almost touching the wick. (3) Squeeze out the appropriate amount of medicine. (4) Wait a minute for the medicine to soak in before sitting up. (5) Wipe away any extra medicine from your ear. Please use nasal steroid such as Nasonex 1 squirt per nostril twice a day. This is available [id number]. Prescriptions: Polymyxin B Sulfate/Tmp [Polytrim Oph Soln (10 ml/ER Disp)] 4 drop QID #1 bottle Forms: Return to Work Referrals: JO-ANN VALDIVIA DO [ASSOCIATE] - Follow up in 3-5 days (Follow-up if no significant relief within 2 days) I personally performed the services described in the documentation, reviewed and edited the documentation which was dictated to the scribe in my presence, and it accurately records my words and actions.
== END 2019-04-18 10:00 | disposition home or self-care (01) ==
LOC: ER 06:42
DX: H60.312 Diffuse otitis externa, left ear (principal); H92.02 Otalgia, left ear; R42 Dizziness and giddiness; R11.0 Nausea; R22.0 Localized swelling, mass and lump, head; J34.89 Other specified disorders of nose and nasal sinuses; I10 Essential (primary) hypertension; G40.909 Epilepsy, unspecified, not intractable, without status epilepticus; Z79.899 Other long term (current) drug therapy; Z88.5 Allergy status to narcotic agent
CPT/HCPCS: 99282; J3490

== ENCOUNTER 2019-12-10 16:37 | Emergency (ER) | payer SELFPAY ==
--- NOTE | 2019-12-10 17:45 | ER Document Report ---
ED Medical Screen (RME) - General Chief Complaint: Abdominal Pain Stated Complaint: LOWER ABDOMINAL PAIN/BACK PAIN/NAUSEA Time Seen by Provider: 12/10/19 17:40 Mode of Arrival: Ambulatory Information source: Patient Notes: 24-year-old female presented to ED for abdominal pain nausea back pain. She states she is not allowed to take ibuprofen because she was taking too much of it before. She states her neurologist told her she cannot take Tylenol because she has seizures. She is alert oriented respirations regular nonlabored speaking in full sentences. She states she has not had there. In the last 2 years she is on the Mirena. She does have a pituitary tumor. I have greeted and performed a rapid initial assessment of this patient. A comprehensive ED assessment and evaluation of the patient, analysis of test results and completion of medical decision making process will be conducted by an additional ED providers. TRAVEL OUTSIDE OF THE [place] IN LAST 30 DAYS: No - Related Data Allergies/Adverse Reactions: hydrocodone Allergy (Verified 12/31/18 16:21) Past Medical History - Past Medical History Cardiac Medical History: Reports: Hx Hypertension Neurological Medical History: Reports: Hx Seizures Endocrine Medical History: Reports: Hx Hypothyroidism Renal/ Medical History: Denies: Hx Peritoneal Dialysis Past Surgical History: Reports: Hx Cholecystectomy, Hx Orthopedic Surgery - Bicep repair, Hx Tonsillectomy - adnoids. - Immunizations Immunizations up to date: Yes Hx Diphtheria, Pertussis, Tetanus Vaccination: Yes Physical Exam - Vital signs Vitals: Temp Pulse Resp BP Pulse Ox 99.0 F 85 20 144/98 H 99 12/10/19 17:02 12/10/19 17:02 12/10/19 17:02 12/10/19 17:02 12/10/19 17:02 Course - Vital Signs Vital signs: Temp Pulse Resp BP Pulse Ox 99.0 F 85 20 144/98 H 99 12/10/19 17:02 12/10/19 17:02 12/10/19 17:02 12/10/19 17:02 12/10/19 17:02
[2019-12-10 18:21] LABS: ABSOLUTE BASOPHILS # (AUTO) 0.1 10^3/uL (0.0-0.2); ABSOLUTE EOSINOPHILS # (AUTO) 0.1 10^3/uL (0.0-0.6); ABSOLUTE LYMPHOCYTES (AUTO) 2.5 10^3/uL (0.5-4.7); ABSOLUTE MONOCYTES (AUTO) 0.9 10^3/uL (0.1-1.4); ABSOLUTE NEUT (AUTO) 8.5 10^3/uL (1.7-8.2); BASOPHILS % (AUTO) 0.4 % (0-2); EOSINOPHILS % (AUTO) 0.5 % (0-6); HEMATOCRIT 38.6 % (36.0-47.0); HEMOGLOBIN 13.8 g/dL (12.0-15.5); LYMPHOCYTES % (AUTO) 20.6 % (13-45); MEAN CORPUSCULAR HEMOGLOBIN 31.5 pg (27.0-33.4); MEAN CORPUSCULAR HGB CONC 35.7 g/dL (32.0-36.0); MEAN CORPUSCULAR VOLUME 88 fl (80-97); MONOCYTES % (AUTO) 7.2 % (3-13); PLATELET COUNT 251 10^3/uL (150-450); RED BLOOD COUNT 4.38 10^6/uL (3.72-5.28); RED CELL DISTRIBUTION WIDTH 13.3 % (11.5-14.0); SEGMENTED NEUTROPHILS % (AUTO) 71.3 % (42-78); TOTAL CELLS COUNTED % (AUTO) 100 %; WHITE BLOOD COUNT 11.9 10^3/uL (4.0-10.5)
[2019-12-10 18:29] LABS: APPEARANCE,URINE SLIGHTLY-CLOUDY; BILIRUBIN,URINE NEGATIVE (NEGATIVE); COLOR,URINE YELLOW; GLUCOSE, URINE NEGATIVE (NEGATIVE); KETONES,URINE NEGATIVE (NEGATIVE); PROTEIN,URINE NEGATIVE (NEGATIVE); UROBILINOGEN,URINE NEGATIVE mg/dL (<2.0)
[2019-12-10 18:47] LABS: ALBUMIN 4.3 g/dL (3.5-5.0); ALKALINE PHOSPHATASE 58 U/L (38-126); ANION GAP 11 (5-19); ASPARTATE AMINO TRANSFERASE 34 U/L (14-36); BILIRUBIN,DIRECT 0.2 mg/dL (0.0-0.4); BILIRUBIN,TOTAL 0.4 mg/dL (0.2-1.3); BLOOD UREA NITROGEN 13 mg/dL (7-20); CALCIUM 9.4 mg/dL (8.4-10.2); CARBON DIOXIDE 26 mmol/L (22-30); CHLORIDE 101 mmol/L (98-107); GLUCOSE 96 mg/dL (75-110); POTASSIUM 4.2 mmol/L (3.6-5.0); TOTAL PROTEIN 7.8 g/dL (6.3-8.2)
[2019-12-10 18:48] LABS: AMORPHOUS SEDIMENT,UR TRACE
[2019-12-10] MEDS ORDERED: KETOROLAC TROMETHAMINE INJ/PF 30 MG/1 ML SDV IV ONE (20:38)
[2019-12-10] MEDS ORDERED: NORMAL SALINE 1000 ML 1,000 ML IV ONE (20:38)
--- NOTE | 2019-12-10 20:41 | ER Document Report ---
ED GI/ - General Chief Complaint: Lower Abdominal Pain Stated Complaint: LOWER ABDOMINAL PAIN/BACK PAIN/NAUSEA Time Seen by Provider: 12/10/19 17:40 Mode of Arrival: Ambulatory Notes: 24-year-old woman presents with a complaint of lower abdominal pain and pain which radiates into her flanks bilaterally. She apparently began 3 weeks ago with mild symptoms involving her sides and is progressed to a more severe pain involving the lower abdominal region with associated nausea when the pain is severe. She denies change of appetite, normal bowel movements, and no fever. TRAVEL OUTSIDE OF THE [place] IN LAST 30 DAYS: No - Related Data Allergies/Adverse Reactions: hydrocodone Allergy (Verified 12/10/19 17:49) Home Medications: denies Past Medical History - General Information source: Patient - Social History Smoking Status: Never Smoker Chew tobacco use (# tins/day): No Frequency of alcohol use: None Drug Abuse: None Family History: Reviewed & Not Pertinent Patient has suicidal ideation: No Patient has homicidal ideation: No - Past Medical History Cardiac Medical History: Reports: Hx Hypertension - no meds Neurological Medical History: Reports: Hx Seizures - no meds Endocrine Medical History: Reports: Hx Hypothyroidism Renal/ Medical History: Denies: Hx Peritoneal Dialysis Past Surgical History: Reports: Hx Cholecystectomy, Hx Orthopedic Surgery - Lt Bicep repair, Hx Tonsillectomy - adnoids. - Immunizations Immunizations up to date: Yes Hx Diphtheria, Pertussis, Tetanus Vaccination: Yes Review of Systems - Review of Systems Notes: Constitutional: Negative for fever. HENT: Negative for sore throat. Eyes: Negative for visual changes. Cardiovascular: Negative for chest pain. Respiratory: Negative for shortness of breath. Gastrointestinal: + abdominal pain, no vomiting, no diarrhea. Genitourinary: Negative for dysuria. Musculoskeletal: Negative for back pain. Skin: Negative for rash. Neurological: Negative for headaches, weakness or numbness. 10 point ROS negative except as marked above and in HPI. Physical Exam - Vital signs Vitals: Temp Pulse Resp BP Pulse Ox 99.0 F 85 20 144/98 H 99 12/10/19 17:02 12/10/19 17:02 12/10/19 17:02 12/10/19 17:02 12/10/19 17:02 - Notes Notes: PHYSICAL EXAMINATION: Physical Exam: General: Well-nourished well-developed overweight female in mild distress HEENT: NC/AT, pupils equal round and reactive to light, MM moist,nares clear, oropharynx clear, airway patent Neck: supple, no adenopathy, no masses. Good range of motion Lungs: clear, no wheezing, no rales no rhonchi CVS: Regular rate and rhythm no murmur gallop or rub Abdomen: Soft, active, + tenderness lower abdominal region, no masses, no hepatosplenomegaly Ext: No edema, clubbing or cyanosis. Neuro: Alert and responsive, moving all 4 extremities on command, cranial nerves intact, no focal findings Skin: Intact no open lesions, no rash PSYCH: Normal mood, normal affect. Course - Re-evaluation Re-evalutation: 12/10/19 22:33 24-year-old with abdominal pain mild elevated white count and no associated fever, urinary tract symptoms or focal abdominal pain. 12/11/19 00:12 CT scan of the abdomen and pelvis with IV contrast revealed mild mesenteric adenitis. Discussed findings of the CT scan with the patient and her significant other and will treat with Flagyl and [id number] probiotics. I am also giving him information regarding gastroenterology for follow-up if needed. - Vital Signs Vital signs: Temp Pulse Resp BP Pulse Ox 99.0 F 85 20 144/98 H 99 12/10/19 17:02 12/10/19 17:02 12/10/19 17:02 12/10/19 17:02 12/10/19 17:02 - Laboratory Result Diagrams: 12/10/19 18:00 12/10/19 18:00 Laboratory results interpreted by me: 12/10/19 12/10/19 18:00 18:00 WBC 11.9 H Absolute Neuts (auto) 8.5 H ALT 44 H 12/11/19 00:13 I have reviewed laboratory data and used this information for the treatment decisions regarding the patient. - Diagnostic Test Radiology reviewed: Image reviewed, Reports reviewed - CT abdomen pelvis with IV contrast: Mesenteric adenitis Discharge - Discharge Clinical Impression: Nonspecific abdominal pain, Mesenteric adenitis Condition: Good Disposition: HOME, SELF-CARE Instructions: Abdominal Pain ([facility]) Additional Instructions: You were diagnosed with mesenteric adenitis in the emergency department today. Please take the medication Flagyl as prescribed and use an [id number] probiotic for the next 3 weeks. Please follow-up with your primary care doctor or if your symptoms are worsening and you have other concerns you may return to the emergency department. HOME CARE INSTRUCTIONS & INFORMATION: Thank you for choosing us for your medical needs. We hope you're satisfied with the care you received. After you leave, you must properly care for your problem and, at the same time, observe its progress. Any condition can change. Some illnesses can change rapidly over hours or days. If your condition worsens, return to the Emergency Department or see your physician promptly. ABOUT YOUR X-RAYS AND EKG'S: If you had an EKG or X-rays taken, they have been read by the Emergency Physician. The X-rays and EKG's will also be read by a Ra diologist or [facility] Developer within 24 hours. If discrepancies are noted, you will be notified by telephone. Please be certain the ED has a correct telephone number & address where you can be reached. Also, realize that some fractures or abnormalities do not show up on initial X-rays. If your symptoms continue, see your physician. ABOUT YOUR LABORATORY TEST: If you had laboratory tests, the results have been reviewed by the Emergency Physician. Some test results (for example cultures) may not be available for several days. You will be contacted if any test result shows you need additional treatment. Please be certain the ED has a correct telephone number and address where you can be reached. ABOUT YOUR MEDICATIONS: You will receive instructions on how to take your medicine on the prescription label you receive. Additional information may be provided by the Pharmacy. If you have questions afterwards, call the ED for clarification or further instructions. Some prescribed medications may cause drowsiness. Do not perform tasks such as driving a car or operating machinery without consulting your Pharmacist. If you feel you need a refill of pain medication, your condition will need re-evaluation. Please do not call for a refill of any medication. ABOUT YOUR SIGNATURE: Signature of this document acknowledges to followin. Understanding that you received emergency treatment and that you may be released before al medical problems are known or treated. Please be certain the ED has a correct phone number & address where you can be reached. 2. Acknowledgement that you will arrange for follow-up care as recommended. 3. Authorization for the Emergency Physician to provide information to your follow-up Physician in order to maximize your care. AT ANY TIME, IF YOUR SYMPTOMS CHANGE SIGNIFICANTLY OR WORSEN OR YOU DEVELOP NEW SYMPTOMS, RETURN TO THE EMERGENCY DEPARTMENT IMMEDIATELY FOR RE-EVALUATION. OUR GOAL IS TO PROVIDE EXCELLENT MEDICAL CARE! WE HOPE THAT WE HAVE MET YOUR EXPECTATIONS DURING YOUR EMERGENCY DEPARTMENT VISIT AND THAT YOU FEEL YOU HAVE RECEIVED EXCELLENT CARE! Prescriptions: Metronidazole [Flagyl 500 mg Tablet] 500 mg PO TID #30 tablet Referrals: ROMMEL ANTOINE MD [ACTIVE STAFF] - Follow up as needed
--- NOTE | 2019-12-10 23:14 | RADIOLOGY REPORT (SQ) ---
EXAM DESCRIPTION: CT ABDOMEN PELVIS WITH IV CONTRAST COMPLETED DATE/TME: 12/10/2019 20:40 CLINICAL HISTORY: 24 years Female, Nonspecific abdominal pain Comparison: 12/31/18 Technique: IV contrast. Coronal and sagittal reformat. This exam was performed according to our departmental dose-optimization program, which includes automated exposure control, adjustment of the mA and/or kV according to patient size and/or use of iterative reconstruction technique. [facility]: Dose Right [facility]: CareDose [facility]: Dose Right [facility]: Teradose 4D [facility]: KOALA.CH LIMITATIONS: None Findings: Mild mesenteric lymphadenopathy of the right lower abdominal quadrant. Hepatic steatosis. IUD appears adequate in position. No ascites. No pneumoperitoneum. Normal appendix. No gross evidence of gallbladder inflammation, hepatobiliary obstruction, or portal vein defect. No bowel obstruction. No hydronephrosis or hydroureter. No renal/ureteral stone. No evidence of abdominal aortic aneurysm. No gross evidence of thecal sac/cord or nerve root compression. Inferior thorax, gallbladder, pancreas, spleen, adrenals, renal system, gastrointestinal tract, pelvic organs, lymphatics, vasculature, and musculoskeleton appear otherwise unremarkable. IMPRESSION: Mild mesenteric adenitis.
[2019-12-11 05:48] VITALS: BP 125/72
== END 2019-12-11 01:15 | disposition home or self-care (01) ==
LOC: ER 16:37
DX: R10.30 Lower abdominal pain, unspecified (principal); I88.0 Nonspecific mesenteric lymphadenitis; M54.9 Dorsalgia, unspecified; R11.0 Nausea; Z88.6 Allergy status to analgesic agent; Z90.49 Acquired absence of other specified parts of digestive tract
CPT/HCPCS: 36415; 74177; 80053; 81001; 83690; 84703; 85025; 99284

== ENCOUNTER 2020-03-27 11:52 | Emergency (ER) | payer SELFPAY ==
[2020-03-27] MEDS ORDERED: ONDANSETRON HCL INJ/PF 4 MG/2 ML SDV IV ONE (12:42)
[2020-03-27] MEDS ORDERED: MORPHINE SULFATE 10 MG/ML INJ IV ONE (12:42)
[2020-03-27] MEDS ORDERED: NORMAL SALINE 1000 ML 1,000 ML IV ONE (12:44)
[2020-03-27 12:54] LABS: APPEARANCE,URINE SLIGHTLY-CLOUDY; BILIRUBIN,URINE NEGATIVE (NEGATIVE); COLOR,URINE YELLOW; GLUCOSE, URINE NEGATIVE (NEGATIVE); KETONES,URINE NEGATIVE (NEGATIVE); LEUKOCYTE ESTERASE,URINE NEGATIVE (NEGATIVE); NITRITE,URINE NEGATIVE (NEGATIVE); PROTEIN,URINE NEGATIVE (NEGATIVE); URINE SPECIFIC GRAVITY 1.021; UROBILINOGEN,URINE NEGATIVE mg/dL (<2.0)
[2020-03-27 13:07] LABS: ABSOLUTE BASOPHILS # (AUTO) 0.1 10^3/uL (0.0-0.2); ABSOLUTE LYMPHOCYTES (AUTO) 1.2 10^3/uL (0.5-4.7); ABSOLUTE MONOCYTES (AUTO) 0.6 10^3/uL (0.1-1.4); ABSOLUTE NEUT (AUTO) 16.7 10^3/uL (1.7-8.2); BASOPHILS % (AUTO) 0.3 % (0-2); EOSINOPHILS % (AUTO) 0.1 % (0-6); HEMATOCRIT 42.9 % (36.0-47.0); HEMOGLOBIN 14.7 g/dL (12.0-15.5); LYMPHOCYTES % (AUTO) 6.6 % (13-45); MEAN CORPUSCULAR HEMOGLOBIN 30.8 pg (27.0-33.4); MEAN CORPUSCULAR HGB CONC 34.2 g/dL (32.0-36.0); MEAN CORPUSCULAR VOLUME 90 fl (80-97); MONOCYTES % (AUTO) 3.5 % (3-13); PLATELET COUNT 308 10^3/uL (150-450); RED BLOOD COUNT 4.76 10^6/uL (3.72-5.28); RED CELL DISTRIBUTION WIDTH 13.4 % (11.5-14.0); SEGMENTED NEUTROPHILS % (AUTO) 89.5 % (42-78); TOTAL CELLS COUNTED % (AUTO) 100 %; WHITE BLOOD COUNT 18.6 10^3/uL (4.0-10.5)
--- NOTE | 2020-03-27 13:21 | ER Document Report ---
ED GI/ - General Chief Complaint: Abdominal Pain Stated Complaint: NAUSEA/VOMITING/DIARRHEA/FLANK PAIN/ABDOMINAL PAIN Time Seen by Provider: 03/27/20 12:23 Notes: CHIEF COMPLAINT: Abdominal pain and vomiting HPI: 25-year-old female presenting with nausea vomiting diarrhea and abdominal pain that began yesterday. Patient states she has a history of GI illnesses that was being worked up by Dr. Geiger from gastroenterology. Was supposed to have endoscopy colonoscopy prior to onset of the COVID pandemic. Patient states that in the last 1 to 2 days she has had decreased appetite began having nausea vomiting last night with explosive type diarrhea. Reports significant lower and upper abdominal pain. ROS: See HPI - all other systems were reviewed and are otherwise negative Constitutional: no fever Eyes: no drainage, no blurred vision ENT: no runny nose, no sore throat Cardiovascular: no chest pain Resp: no SOB, no cough GI: + vomiting, + diarrhea, + abdominal pain : no dysuria Integumentary: no rash Allergy: no hives Musculoskeletal: no extremity pain or swelling Neurological: no numbness/tingling, no weakness MEDICATIONS: I agree with the patient medications as charted by the RN. ALLERGIES: I agree with the allergies as charted by the RN. PAST MEDICAL HISTORY/PAST SURGICAL HISTORY: Reviewed and agree as charted by RN. SOCIAL HISTORY: Reviewed and agree as charted by RN. FAMILY HISTORY: No significant familial comorbid conditions directly related to patient complaint EXAM: Reviewed vital signs as charted by RN. CONSTITUTIONAL: Alert and oriented and responds appropriately to questions. Well-appearing; well-nourished, mild distress secondary to pain HEAD: Normocephalic; atraumatic EYES: PERRL; Conjunctivae clear, sclerae non-icteric ENT: normal nose; no rhinorrhea; moist mucous membranes; pharynx without lesions noted, no uvula edema or deviation, no tonsillar hypertrophy, phonation normal NECK: Supple without meningismus; non-tender; no cervical lymphadenopathy, no masses CARD: RRR; no murmurs, no clicks, no rubs, no gallops; symmetric distal pulses RESP: Normal chest excursion without splinting or tachypnea; breath sounds clear and equal bilaterally; no wheezes, no rhonchi, no rales, pulse oximetry ABD/GI: Obese, normal bowel sounds; non-distended; soft, mild tenderness in the right lower quadrant suprapubic region on palpation mild tenderness in the left upper quadrant on palpation, no rebound, no guarding; no palpable organomegaly or masses. BACK: The back appears normal and is non-tender to palpation, there is no CVA tenderness EXT: Normal ROM in all joints; non-tender to palpation; no cyanosis, no effusions, no edema SKIN: Normal color for age and race; warm; dry; good turgor; no acute lesions noted NEURO: Moves all extremities equally; Motor and sensory function intact PSYCH: The patient's mood and manner are appropriate. Grooming and personal hygiene are appropriate. MDM: 25-year-old female with history of unknown gastrointestinal problems that were being worked up by gastroenterology several months ago with worsening abdominal pain with nausea vomiting and diarrhea. Did not see any blood in her stool. Reports both upper and lower abdominal discomfort. Will obtain screening labs, plan for CT to better evaluate surgical or infectious process TRAVEL OUTSIDE OF THE [place] IN LAST 30 DAYS: No - Related Data Allergies/Adverse Reactions: hydrocodone Allergy (Verified 12/10/19 17:49) Past Medical History - Social History Smoking Status: Unknown if Ever Smoked Family History: Reviewed & Not Pertinent - Past Medical History Cardiac Medical History: Reports: Hx Hypertension - no meds Neurological Medical History: Reports: Hx Seizures - no meds Endocrine Medical History: Reports: Hx Hypothyroidism Renal/ Medical History: Denies: Hx Peritoneal Dialysis Past Surgical History: Reports: Hx Cholecystectomy, Hx Orthopedic Surgery - Lt Bicep repair, Hx Tonsillectomy - adnoids. - Immunizations Immunizations up to date: Yes Hx Diphtheria, Pertussis, Tetanus Vaccination: Yes Physical Exam - Vital signs Vitals: Temp 99.6 F 03/27/20 11:53 Course - Re-evaluation Re-evalutation: 03/27/20 15:[address] shows mesenteric adenitis but also mild colitis. Will place patient on Cipro Flagyl refer to GI with return instructions - Vital Signs Vital signs: Temp Pulse Resp BP Pulse Ox 99.6 F 107 H 20 120/72 97 03/27/20 11:58 03/27/20 11:58 03/27/20 11:58 03/27/20 11:58 03/27/20 11:58 - Laboratory Result Diagrams: 03/27/20 12:39 03/27/20 12:45 Laboratory results interpreted by me: 03/27/20 03/27/20 03/27/20 12:39 12:39 12:45 WBC 18.6 H Lymph % (Auto) 6.6 L Absolute Neuts (auto) 16.7 H Seg Neutrophils % 89.5 H Sodium 134.5 L Urine Blood SMALL H Discharge - Discharge Clinical Impression: Acute colitis, Mesenteric adenitis Condition: Stable Disposition: HOME, SELF-CARE Additional Instructions: Take the medications as prescribed no driving if taking narcotics for pain. It is imperative that you follow-up closely with gastroenterology for further evaluation and treatment. Your CT imaging suggested a mild colitis today as well as the enlarged lymph nodes. Prescriptions: Ciprofloxacin HCl [Cipro 500 mg Tablet] 500 mg PO BID #20 tablet Metronidazole [Flagyl 500 mg Tablet] 500 mg PO TID #21 tablet Oxycodone HCl/Acetaminophen [Percocet 5-325 mg Tablet] 1 tab PO Q4H PRN #10 tab PRN Reason: Ondansetron [Zofran Odt 4 mg Tablet] 1 - 2 tab PO Q4H PRN #15 tab.rapdis PRN Reason: For Nausea/Vomiting
[2020-03-27 13:38] LABS: ALBUMIN 4.6 g/dL (3.5-5.0); ALKALINE PHOSPHATASE 58 U/L (38-126); ANION GAP 10 (5-19); ASPARTATE AMINO TRANSFERASE 29 U/L (14-36); BILIRUBIN,DIRECT 0.1 mg/dL (0.0-0.4); BILIRUBIN,TOTAL 1.1 mg/dL (0.2-1.3); BLOOD UREA NITROGEN 10 mg/dL (7-20); CALCIUM 9.2 mg/dL (8.4-10.2); CARBON DIOXIDE 25 mmol/L (22-30); CHLORIDE 100 mmol/L (98-107); GLUCOSE 100 mg/dL (75-110); TOTAL PROTEIN 7.9 g/dL (6.3-8.2)
--- NOTE | 2020-03-27 14:54 | RADIOLOGY REPORT (SQ) ---
EXAM DESCRIPTION: CT ABD/PELVIS WITH IV ONLY IMAGES COMPLETED DATE/TIME: 03/27/2020 2:30 pm REASON FOR STUDY: abd pain . Diffuse abdominal pain. Prior cholecystectomy. COMPARISON: CT abdomen and pelvis 12/10/2019. TECHNIQUE: CT scan of the abdomen and pelvis performed using helical scanning technique with dynamic intravenous contrast injection. No oral contrast. Images reviewed with lung, soft tissue, and bone windows. Reconstructed coronal and sagittal MPR images reviewed. Delayed images for evaluation of the urinary system also acquired. All images stored on PACS. All CT scanners at this facility use dose modulation, iterative reconstruction, and/or weight based d osing when appropriate to reduce radiation dose to as low as reasonably achievable (ALARA). [facility]: Dose Right [facility]: CareDose [facility]: Dose Right [facility]: Teradose 4D [facility]: [employer] CONTRAST TYPE AND DOSE: contrast/concentration: Isovue 350.00 mmol/ml; Total Contrast Delivered: 100 .0 ml; Total Saline Delivered: 72.0 ml RENAL FUNCTION: Creatinine 0.84 RADIATION DOSE: CT Rad equipment meets quality standard of care and radiation dose reduction techniq ues were employed. CTDIvol: NaN - NaN mGy. DLP: 0 mGy-cm.. LIMITATIONS: None. FINDINGS: LOWER CHEST: No consolidation or pleural effusion. LIVER: There is diffuse decreased attenuation most consistent with fatty infiltration. No dilated du cts. SPLEEN: Normal size. PANCREAS: No significant calcifications. No adjacent inflammation or peripancreatic fluid collections . Pancreatic duct not dilated. GALLBLADDER: Surgically absent. ADRENAL GLANDS: No significant masses or asymmetry. RIGHT KIDNEY AND URETER: No solid masses. No significant calcifications. No hydronephrosis or hyd roureter. LEFT KIDNEY AND URETER: No solid masses. No significant calcifications. No hydronephrosis or hydr oureter. AORTA AND VESSELS: No abdominal aortic aneurysm or evidence for acute dissection. Renal arteries, SMA , celiac artery are patent. RETROPERITONEUM: No retroperitoneal adenopathy, hemorrhage or masses. BOWEL AND PERITONEAL CAVITY: No dilated bowel loops. There is liquid stool at the colon with mild di ffuse wall thickening. No free fluid or free air. Mildly enlarged lymph nodes are noted at the righ t lower quadrant measuring up to 10 mm in short axis. APPENDIX: Normal. PELVIS: An intrauterine device is present at the uterus. No free fluid. The urinary bladder is deco mpressed. ABDOMINAL WALL: No hernias. BONES: There is pars defect at L3 and L5 with no significant listhesis. Multilevel degenerative disc disease at the visualized thoracic spine. IMPRESSION: 1. Mildly enlarged lymph nodes at the right lower quadrant, may be seen with mesenteric adenitis. 2. Liquid stool at the colon with mild diffuse wall thickening, suggestive of diarrhea/mild colitis. 3. Fatty infiltration of the liver. TECHNICAL DOCUMENTATION: JOB ID: [id number] [facility] Quality ID # 436: Final reports with documentation of one or more dose reduction techniques (e.g., Au tomated exposure control, adjustment of the mA and/or kV according to patient size, use of iterative reconstruction technique) 2010 [employer]- All Rights Reserved Reading location - IP/workstation name: [email or web address]
[2020-03-27] MEDS ORDERED: METRONIDAZOLE 500 MG TABLET PO ONE (14:58)
[2020-03-27] MEDS ORDERED: CIPROFLOXACIN HCL 500 MG TABLET PO ONE (14:59)
[2020-03-27 16:52] VITALS: BP 108/68
== END 2020-03-27 15:20 | disposition home or self-care (01) ==
LOC: ER 11:52
DX: K52.9 Noninfective gastroenteritis and colitis, unspecified (principal); I88.0 Nonspecific mesenteric lymphadenitis; R10.9 Unspecified abdominal pain; R11.2 Nausea with vomiting, unspecified; I10 Essential (primary) hypertension; Z79.899 Other long term (current) drug therapy; R10.10 Upper abdominal pain, unspecified; R10.30 Lower abdominal pain, unspecified
CPT/HCPCS: 99284; 96361; 96374; 96375; 36415; 83690; 85025; 81025; 80053; 81001; 74177; J2270; J2405; J7030

== ENCOUNTER 2020-04-30 06:53 | Day surgery (SDC) | payer SELFPAY ==
[2020-04-30] MEDS ORDERED: PROPOFOL INJ 200 MG/20 ML VIAL IV ONE (07:32)
--- NOTE | 2020-04-30 08:40 | Operative Report ---
Operative Report DATE OF SURGERY: 04/30/20 Operative Report: The risk, benefits and alternatives of the procedure including the risk of bleeding, perforation requiring surgery have been explained to the patient in detail and informed consent has been obtained. Patient is taken back to the endoscopy suite and placed in the left, lateral decubital position. Timeout was called. Propofol medication is administered. Rectal examination is done which did not reveal any masses, tears or fissures. An Olympus upper scope was introduced into the patient's rectum and advanced to the cecum. Intubation of the terminal ileum was done. Scope was then sequentially pulled back via the various segments of the colon including the ascending colon, hepatic flexure, transverse colon, splenic flexure, descending colon and finally into the rectosigmoid portions of the colon. Retroflexion maneuvers performed. The risks benefits and alternatives of the procedure explained to the patient in detail and informed consent is obtained.A GIF Olympus video scope was inserted into the patient's mouth and hypopharynx, the esophagus is identified intubated and insufflated, the scope was then advanced through the esophagus stomach and duodenum, retroflexion maneuver is done, the esophagus stomach and first and second portions of the duodenum examined PREOPERATIVE DIAGNOSIS: Mesenteric adenitis. Change of bowel habits ,abdominal pain POSTOPERATIVE DIAGNOSIS: Terminal ileitis status post biopsy. Internal hemorrhoids. Gastritis status post biopsy. Hiatal hernia. Esophagitis/esophageal ulceration. Breakage of Schatzki's ring OPERATION: Colonoscopy with biopsy. EGD with biopsy SURGEON: ROMMEL ANTOINE ANESTHESIA: LMAC TISSUE REMOVED OR ALTERED: As noted above. COMPLICATIONS: None. ESTIMATED BLOOD LOSS: None. INTRAOPERATIVE FINDINGS: As noted above. PROCEDURE: Patient tolerated the procedure well. No immediate postprocedure complications are noted. Patient is discharged in good condition. Discharge date 04/30/2020. Discharge diet: Regular. Discharge activity: Regular. 2 to 3-week follow-up to discuss findings. Patient is instructed call the office or proceed to the emergency room should there be any further problems or questions. Wait on the pathology.
[2020-04-30] MEDS ORDERED: MIDAZOLAM 2 MG/2 ML INJ ONE (08:49)
[2020-04-30] MEDS ORDERED: SIMETHICONE 80 MG TAB.CHEW ONE (09:03)
[2020-04-30 11:07] VITALS: BP 130/90
== END 2020-04-30 09:50 | disposition home or self-care (01) ==
LOC: END 06:53
PROVIDERS: ATTEND Internal Medicine Gastroenterology
DX: K52.9 Noninfective gastroenteritis and colitis, unspecified (principal); K64.8 Other hemorrhoids; K29.50 Unspecified chronic gastritis without bleeding; K44.9 Diaphragmatic hernia without obstruction or gangrene; K22.2 Esophageal obstruction; K02.9 Dental caries, unspecified; Z03.818 Encounter for observation for suspected exposure to other biological agents ruled out; K22.10 Ulcer of esophagus without bleeding; I88.0 Nonspecific mesenteric lymphadenitis; E66.9 Obesity, unspecified; G40.909 Epilepsy, unspecified, not intractable, without status epilepticus
CPT/HCPCS: 43239; 45380; 87635; 88342 ×2; 88305 ×2; 00813; J2704; C9803; 813; J2250